=== PATIENT | male | born 1960 | race Caucasian/White ===

== ENCOUNTER → 2017-08-16 19:02 | Outpatient (CLI) | payer MEDICARE, OTHER | END | disposition home or self-care (01) | LOC: D.LABREF 19:02 | DX: E78.5 Hyperlipidemia, unspecified (principal) ==

== ENCOUNTER 2018-08-31 16:08 | Observation (INO) | payer MEDICARE, OTHER ==
[~2018-08-31] VITALS: Ht 182.9 cm; Wt 103.7 kg
[~2018-08-31 16:08] MED LIST: ASPIRIN EC81 M1 PO; CYCLOBENZAPRINE10 MG PO; HYDROCODONE-APA1 TAB PO; METOPROLOL TART50 MG PO; PROTONIX40 MG PO; ULTRAM50 MG PO; ZOCOR20 MG PO
[2018-08-31 16:59] LABS: BASOPHILS 0 % (0-2); EOSINOPHILS 0 % (0-7); HEMATOCRIT 37.6 % (42.0-54.0); IMMATURE GRANULOCYTES 0.3 % (0-5); LYMPHOCYTES 14.2 % (15-50); MCH 31.7 pg (26.0-34.0); MCHC 34.6 g/dL (31.0-37.0); MCV 91.7 fL (80.0-100.0); MEAN PLATELET VOLUME 10.2 fL (7.4-10.4); NEUTROPHILS 67.5 % (40-80); WBC 7.3 10x3/uL (4.8-10.8)
[2018-08-31 17:19] LABS: ALBUMIN 2.8 g/dL (3.4-5.0); ANION GAP 10.6 mmol/L (8-16); BILIRUBIN - TOTAL 0.6 mg/dL (0.2-1.3); CALCIUM 8.7 mg/dL (8.5-10.1); CREATININE - SERUM 2.1 mg/dL (0.6-1.3); POTASSIUM - SERUM 4.6 mmol/L (3.5-5.1); PROTEIN - SERUM 6.9 g/dL (6.4-8.2)
[2018-08-31 17:20] LABS: PLATELET COUNT 172 10x3/uL (130-400)
[2018-08-31 18:28] LABS: APPEARANCE CLEAR (CLEAR); COLOR YELLOW (YELLOW)
[2018-08-31 18:29] LABS: BILIRUBIN NEGATIVE (NEGATIVE); GLUCOSE NEGATIVE (NEGATIVE); KETONE NEGATIVE (NEGATIVE); NITRITE NEGATIVE (NEGATIVE); PROTEIN TRACE mg/dL (NEGATIVE); SPECIFIC GRAVITY 1.015 (1.005-1.020); UROBILINOGEN NORMAL (NORMAL)
[2018-08-31 23:26] LABS: AMYLASE - SERUM 13 U/L (25-115)
[2018-08-31 23:28] LABS: LIPASE 39 U/L (73-393)
[2018-09-01] VITALS: BP 176/74
[2018-09-01 01:11] VITALS: BP 176/74; Ht 182.9 cm; Wt 103.7 kg
[2018-09-01 04:00] VITALS: BP 165/82
[2018-09-01 05:22] LABS: BASOPHILS 0.1 % (0-2); EOSINOPHILS 0.3 % (0-7); HEMATOCRIT 33.6 % (42.0-54.0); HEMOGLOBIN 11.5 g/dL (13.5-17.5); IMMATURE GRANULOCYTES 0.1 % (0-5); LYMPHOCYTES 16.9 % (15-50); MCH 31.3 pg (26.0-34.0); MCHC 34.2 g/dL (31.0-37.0); MCV 91.3 fL (80.0-100.0); MEAN PLATELET VOLUME 9.9 fL (7.4-10.4); MONOCYTES 15.4 % (2-11); NEUTROPHILS 67.2 % (40-80); PLATELET COUNT 165 10x3/uL (130-400); RBC 3.68 10x6/uL (4.20-6.10); RDW 13.9 % (11.5-14.5); WBC 6.9 10x3/uL (4.8-10.8)
[2018-09-01 05:42] LABS: ANION GAP 12.4 mmol/L (8-16); CALCIUM 8.2 mg/dL (8.5-10.1); CARBON DIOXIDE 26.1 mmol/L (21.0-32.0); CREATININE - SERUM 2.1 mg/dL (0.6-1.3); POTASSIUM - SERUM 4.5 mmol/L (3.5-5.1)
[2018-09-01 09:03] VITALS: BP 168/64
[2018-09-01 20:37] VITALS: BP 172/85
[2018-09-02 01:19] VITALS: BP 178/83
[2018-09-02 04:52] LABS: BASOPHILS 0 % (0-2); EOSINOPHILS 0.3 % (0-7); HEMATOCRIT 34.9 % (42.0-54.0); HEMOGLOBIN 12.1 g/dL (13.5-17.5); IMMATURE GRANULOCYTES 0.3 % (0-5); LYMPHOCYTES 17.1 % (15-50); MCH 31.6 pg (26.0-34.0); MCHC 34.7 g/dL (31.0-37.0); MCV 91.1 fL (80.0-100.0); MEAN PLATELET VOLUME 10.4 fL (7.4-10.4); MONOCYTES 15.3 % (2-11); PLATELET COUNT 165 10x3/uL (130-400); RBC 3.83 10x6/uL (4.20-6.10); RDW 13.8 % (11.5-14.5); WBC 7.3 10x3/uL (4.8-10.8)
[2018-09-02 05:15] LABS: ANION GAP 11.7 mmol/L (8-16); CALCIUM 8.4 mg/dL (8.5-10.1); CARBON DIOXIDE 26.6 mmol/L (21.0-32.0); CREATININE - SERUM 2.2 mg/dL (0.6-1.3); PHOSPHOROUS 3.6 mg/dL (2.5-4.9); POTASSIUM - SERUM 4.3 mmol/L (3.5-5.1); URIC ACID 5.4 mg/dL (2.6-7.2)
[2018-09-02 05:38] VITALS: BP 177/87
[2018-09-02 09:35] VITALS: BP 183/73
[2018-09-02] MEDS ORDERED: BACTRIM DS PO (11:17)
[2018-09-02 12:18] VITALS: BP 189/51
== END 2018-09-02 13:17 | disposition home or self-care (01) ==
LOC: D.ER 16:08 → D.EDHOLD 20:00 → D.M2 20:00 → OBSVTIME 20:00 → D.M2 20:24
PROVIDERS: Family Medicine; Internal Medicine Nephrology
DX: N17.9 Acute kidney failure, unspecified (principal); I12.9 Hypertensive chronic kidney disease with stage 1 through stage 4 chronic kidney disease, or unspecified chronic kidney disease; N18.3 Chronic kidney disease, stage 3 (moderate); I25.10 Atherosclerotic heart disease of native coronary artery without angina pectoris; Z95.5 Presence of coronary angioplasty implant and graft; N40.0 Benign prostatic hyperplasia without lower urinary tract symptoms; E78.5 Hyperlipidemia, unspecified; M51.36 Other intervertebral disc degeneration, lumbar region

== ENCOUNTER → 2018-12-21 14:45 | Outpatient (CLI) | payer OTHER ==
[2018-09-01 01:11] VITALS: BMI 29.9
[~2018-12-21 14:45] MED LIST changes: +BACTRIM DS PO
== END | disposition home or self-care (01) ==
LOC: D.RAD 10:00
DX: M51.37 Other intervertebral disc degeneration, lumbosacral region (principal)